=== PATIENT | male | born 1965 | race Two or more races ===

== ENCOUNTER → 2022-10-05 | Outpatient (CLI) | payer OTHER ==
[2022-10-05 17:11] LABS: BASOPHILS ABSOLUTE AUTO 0.05 K/mm3 (0.00-0.23); BASOPHILS PERCENT AUTO 1 % (0-2); EOSINOPHILS ABSOLUTE AUTO 0.13 K/mm3 (0.00-0.68); EOSINOPHILS PERCENT AUTO 1 % (0-6); Hematocrit 47.3 % (37.0-53.0); Hemoglobin 15.9 g/dL (13.5-17.5); IMMATURE GRAN ABSOLUTE AUTO 0.07 K/mm3 (0.00-0.10); IMMATURE GRAN PERCENT AUTO 1 % (0-1); LYMPHOCYTES ABSOLUTE AUTO 2.44 K/mm3 (0.84-5.20); LYMPHOCYTES PERCENT AUTO 23 % (21-46); MONOCYTES ABSOLUTE AUTO 0.59 K/mm3 (0.16-1.47); MONOCYTES PERCENT AUTO 6 % (4-13); Mean Corpuscular HGB 30.4 pg (26.0-34.0); Mean Corpuscular HGB Conc 33.6 g/dL (31.5-36.5); Mean Corpuscular Volume 90 fL (80-100); NEUTROPHILS ABSOLUTE AUTO 7.32 K/mm3 (1.96-9.15); NEUTROPHILS PERCENT AUTO 69 % (41-73); Platelet Count 303 K/mm3 (150-400); RDW Coefficient Variation 13.6 % (11.7-14.2); Red Blood Cell Count 5.23 M/mm3 (4.30-5.90)
[2022-10-05 17:42] LABS: Albumin, Blood 4.1 g/dL (3.4-5.0); Albumin/Globulin Ratio 1.1 (0.8-1.8); Bilirubin, Total 0.5 mg/dL (0.1-1.0); Bun/Creatinine Ratio 15.7 (12.0-20.0); Calcium, Blood 9.7 mg/dL (8.5-10.1); Creatinine, Blood 1.15 mg/dL (0.60-1.20); Globulin, Blood 3.8 g/dL (2.2-4.0); Potassium, Blood 4.1 mmol/L (3.5-5.5); Thyroid Stimulating Hormone 2.817 uIU/mL (0.360-4.800); Total Protein, Blood 7.9 g/dL (6.4-8.2)
== END | disposition home or self-care (01) ==
LOC: LAB SHORT 17:03
PROVIDERS: Chiropractor
DX: R53.81 Other malaise (principal); R53.83 Other fatigue
CPT/HCPCS: 80053; 84443; 84484; 85025; 85379; 85651; 86140

== ENCOUNTER 2023-03-05 12:52 | Inpatient (IN) | payer OTHER ==
[~2023-03-05] VITALS: Ht 177.8 cm; Wt 88.5 kg
[~2023-03-05 12:52] MED LIST: BACL10 PO; GABA100 PO; LISI20 PO; OMEP20ER PO; TAMS.4ER PO
[2023-03-05] MEDS ORDERED: NAPR220 PO (14:08)
[2023-03-05 15:23] LABS: BASOPHILS ABSOLUTE AUTO 0.06 K/mm3 (0.00-0.23); BASOPHILS PERCENT AUTO 0 % (0-2); EOSINOPHILS ABSOLUTE AUTO 0.06 K/mm3 (0.00-0.68); EOSINOPHILS PERCENT AUTO 0 % (0-6); Hematocrit 40.5 % (37.0-53.0); Hemoglobin 13.8 g/dL (13.5-17.5); IMMATURE GRAN ABSOLUTE AUTO 0.07 K/mm3 (0.00-0.10); IMMATURE GRAN PERCENT AUTO 1 % (0-1); LYMPHOCYTES ABSOLUTE AUTO 1.67 K/mm3 (0.84-5.20); LYMPHOCYTES PERCENT AUTO 12 % (21-46); MONOCYTES ABSOLUTE AUTO 0.62 K/mm3 (0.16-1.47); MONOCYTES PERCENT AUTO 5 % (4-13); Mean Corpuscular HGB 30.4 pg (26.0-34.0); Mean Corpuscular HGB Conc 34.1 g/dL (31.5-36.5); Mean Corpuscular Volume 89 fL (80-100); Mean Platelet Volume 9.4 fL (9.1-12.4); NEUTROPHILS ABSOLUTE AUTO 11.39 K/mm3 (1.96-9.15); NEUTROPHILS PERCENT AUTO 82 % (41-73); Platelet Count 295 K/mm3 (150-400); RDW Coefficient Variation 13.3 % (11.7-14.2); RDW Standard Deviation 43.5 fL (35.1-46.3); Red Blood Cell Count 4.54 M/mm3 (4.30-5.90); White Blood Cell Count 13.87 K/mm3 (4.00-11.30)
[2023-03-05 15:37] LABS: International Normalized Ratio 1.01; Prothrombin Time Results 10.6 Sec (9.7-11.5)
[2023-03-05 15:38] LABS: Bun/Creatinine Ratio 23.1 (12.0-20.0); Calcium, Blood 9.2 mg/dL (8.5-10.1); Potassium, Blood 4.1 mmol/L (3.5-5.5)
[2023-03-05 16:12] VITALS: BP 145/90
[2023-03-05 16:13] VITALS: BP 145/90
--- NOTE | 2023-03-05 16:24 | NUR ---
ARRIVAL TO UNIT PT ARRIVED TO UNIT FROM ER VIA GURNEY. TRANSFERED TO BED WITH SLIDE SHEET. PT REPORTS PAIN TOLERABLE ONCE SETTLED IN BED. HE ENDORSES NUMBNESS TO BILATERAL LEGS BUT BASELINE R/T PREVIOUS BACK INJURY. PPX4, CAP REFILL <3. MOVES TOES WELL. PT AA0X4. DENIES FURTHER NEEDS AT THIS TIME. ORIENTED TO UNIT. PLAN WILL BE FOR NPO AT MIDNIGHT POSSIBLE PROCEDURE TOMORROW.
[2023-03-05 20:10] VITALS: BP 135/84
[2023-03-05 20:24] LABS: Source, Urine Clean Catch
[2023-03-05 20:33] LABS: Appearance, Urine Clear (Clear); Bilirubin, Urine Neg (Neg); Blood, Urine Neg (Neg); Color, Urine Yellow (P-Yellow); Glucose Qualitative, Urine Neg (Neg); Ketones, Urine Neg (Neg); Leukocyte Esterase, Urine Neg (Neg); Nitrite, Urine Neg (Neg); Protein, Urine Neg (Neg); Urobilinogen, Urine NORM (Normal)
[2023-03-06 04:30] VITALS: BP 125/86
[2023-03-06 05:26] LABS: Hematocrit 40.5 % (37.0-53.0); Hemoglobin 13.7 g/dL (13.5-17.5); Mean Corpuscular HGB 30.5 pg (26.0-34.0); Mean Corpuscular HGB Conc 33.8 g/dL (31.5-36.5); Mean Corpuscular Volume 90 fL (80-100); Mean Platelet Volume 9.8 fL (9.1-12.4); Platelet Count 287 K/mm3 (150-400); RDW Coefficient Variation 13.3 % (11.7-14.2); RDW Standard Deviation 44.1 fL (35.1-46.3); Red Blood Cell Count 4.49 M/mm3 (4.30-5.90); White Blood Cell Count 11.93 K/mm3 (4.00-11.30)
[2023-03-06 05:59] LABS: Bun/Creatinine Ratio 22.8 (12.0-20.0); Calcium, Blood 8.7 mg/dL (8.5-10.1); Creatinine, Blood 0.96 mg/dL (0.60-1.20); Potassium, Blood 4.6 mmol/L (3.5-5.5)
--- NOTE | 2023-03-06 06:37 | NUR ---
SHIFT SUMMARY A/O X4- BEDREST THROUGHOUT THE SHIFT. PAIN MANAGED W/ PO PAIN MEDICATION. VOIDING WELL AND TOLERATED PO INTAKE. NPO AT MIDNIGHT. NO ACUTE CHANGES THROUGHOUT SHIFT.
[2023-03-06 09:05] VITALS: BP 130/66
--- NOTE | 2023-03-06 10:38 | NUR ---
MORNING CARE NOTE R FEMORAL NECK FX, POST FALL. AWAITING SURGICAL PROCEDURE. ORTHO CONSULT COMPLETED THIS AM. PT AOX4. VSS. PAIN TOLERABLE, PLAN TO MEDICATE PER EMAR PRN. ALLOWED A CLEAR LIQ DIET UNTIL 10, CURRENTLY NPO. SURGICAL INFECTION PREVENTION INTERVENTION COMPLETED. NO NEEDS AT THIS TIME, CALL LIGHT IN REACH
[2023-03-06 14:52] VITALS: BP 126/80
--- NOTE | 2023-03-06 15:24 | NUR ---
PT TRANSFERRED OFF OF UNIT FOR SURGICAL PROCEDURE VIA HOSPITAL BED.
[2023-03-06 15:35] VITALS: BP 133/75
--- NOTE | 2023-03-06 16:26 | NUR ---
PT RETURNED TO UNIT SURGICAL PROCEDURE POSTPONED UNTIL TOMORROW. SMALL SNACKS PROVIDED, DINNER TRAY WILL BE ORDERED. NPO AT MIDNIGHT. PAIN IS TOLERABLE AT THIS TIME, WILL MEDICATE PER EMAR PRN. AT BEDSIDE. NO NEEDS AT THIS TIME.
--- NOTE | 2023-03-06 17:35 | NUR ---
SHIFT SUMMARY NO ACUTE CHANGES THIS SHIFT. R FEMORAL NECK FX, POST FALL 03/05/23. SURGICAL PROCEDURE POSTPONED UNTIL TOMORROW. DINNER TRAY ORDERED, NPO AT MIDNIGHT. VSS. PAIN TOLERABLE PER EMAR, HAS REQ MINIMAL PAIN MEDICATION. AT BEDSIDE T/O SHIFT.
[2023-03-06 20:04] VITALS: BP 115/83
[2023-03-07] VITALS (18 sets, daily range): BP systolic 85–127; BP diastolic 38–83
--- NOTE | 2023-03-07 05:09 | NUR ---
SHIFT SUMMARY A/O X4- BEDREST THROUGHOUT SHIFT, PLAN FOR SURGERY TODAY. VOIDING WELL IN URINAL, TOLERATED PO INTAKE-NPO SINCE MIDNIGHT. PAIN MANAGED W/ PO PAIN MEDS. NO ACUTE CHANGES THROUGHOUT SHIFT.
--- NOTE | 2023-03-07 07:45 | NUR ---
Initial assessment: Patient is lying in bed awake, he is alert and oriented x4. He denies pain at this time, he states his right hip only hurts with movement. HRR. LS CTA, Biox WNL on RA. BT+. PPP. Some swelling noted to right hip. CHG prep complete along with chlorahexadine swish and nasal swab. Patient denies other needs at this time. He is NPO in anticipation for his procedure this afternoon. Call light in reach.
--- NOTE | 2023-03-07 13:30 | NUR ---
UPDATE: OR crew here to get the patient, he has not had any pain this shift. Family at bedside.
--- NOTE | 2023-03-07 16:31 | NUR ---
Update: Patient is still in the OR. Report given to Nela Surg Floor RN to assume care.
--- NOTE | 2023-03-07 16:32 | NUR ---
THIS NURSE IS ASSUMING CARE OF THIS PATIENT AFTER GETTING REPORT FROM RAVINDER WAN.
--- NOTE | 2023-03-07 18:50 | NUR ---
PATIENT CAME BACK FROM PACU TODAY AT 1840. POD 0 RIGHT TOTAL HIP PATIENT IS A&OX4. VS ARE WNL AND IS ON 2L NC WITH >90% OXYGEN SATS. HIS RIGHT HIP HAS AN AQUACEL THAT IS C/D/I. DENIES NUMBNESS OR TINGLING. CAN MOVE ALL FINGERS AND TOES. EMILY WAS TAKEN OUT AT THIS TIME. PATIENT REPORTS PAIN IN HIS BACK THE MOST AND WAS JUST GIVEN PO BACLOFEN. HE IS TOLERATING SMALL AMOUNTS OF PO INTAKE. PATIENT IS SITTING UP IN BED CALL LIGHT IN REACH.
[2023-03-08 04:42] VITALS: BP 93/62
--- NOTE | 2023-03-08 04:57 | NUR ---
SHIFT SUMMARY POD1 RIGHT KENDALL. DRESSING IS C/D/I, SENSATION AND CIRCULATION REMAINS INTACT. VSS, BP NOTED TO BE SOFT. IV FLUIDS INFUSING, PT REMAINS ASYMPTOMATIC. PT SLEPT WELL T/O THE NIGHT. DID NOT GET OOB. NO VOID NOTED, BLADDER SCAN [phone] AT 0449. PT REFUSED STRAIT CATH AT THIS TIME, REQUESTED TO TAKE FLOMAX DOSE EARLY TO SEE IF HE COULD VOID ON HIS OWN. PT EDUCATED THAT HE IS AT RISK FOR DEVELOPING COMPLICATIONS FROM NOT VOIDING FOR THIS LONG, PT EXPRESSED HIS UNDERSTANDING. PT MEDICATED FOR PAIN ONCE AT THE BEGINNING OF SHIFT WITH PERCOCET. PT TOLLERATING PO INTAKE W/O N/V. PLAN TO SEE IF PT CAN VOID BEFORE THE END OF SHIFT, AND HAVE PT WORK WITH PT/OT TODAY. THE PATIENT IS RESTING, CALL LIGHT IN REACH
[2023-03-08 05:08] LABS: Hematocrit 39.2 % (37.0-53.0); Hemoglobin 13.1 g/dL (13.5-17.5); Mean Corpuscular HGB Conc 33.4 g/dL (31.5-36.5); Mean Corpuscular Volume 90 fL (80-100); Mean Platelet Volume 9.7 fL (9.1-12.4); Platelet Count 298 K/mm3 (150-400); RDW Coefficient Variation 12.7 % (11.7-14.2); RDW Standard Deviation 42.3 fL (35.1-46.3); Red Blood Cell Count 4.36 M/mm3 (4.30-5.90); White Blood Cell Count 16.32 K/mm3 (4.00-11.30)
[2023-03-08 05:23] LABS: Albumin, Blood 2.8 g/dL (3.4-5.0); Anion Gap 3 mmol/L (6-16); Blood Urea Nitrogen 20 mg/dL (8-24); Bun/Creatinine Ratio 20.8 (12.0-20.0); CO2, Blood 27 mmol/L (21-32); Calcium, Blood 8.1 mg/dL (8.5-10.1); Chloride, Blood 105 mmol/L (98-108); Creatinine, Blood 0.96 mg/dL (0.60-1.20); Glomerular Filtration Rate 91 (60-); Glucose, Blood 141 mg/dL (70-99); Potassium, Blood 4.3 mmol/L (3.5-5.5); Sodium, Blood 135 mmol/L (136-145)
--- NOTE | 2023-03-08 06:25 | NUR ---
ELIMINATION PT AMBULATED TO THE BATHROOM, 1P FWW MIN ASSIST, SAT ON THE TOILET AND HAD AN UNMEASURED VOID. PT STATES HE FEELS IF HE EMPTIES HIS BLADDER COMPLETELY AND DOES NOT FEEL ANY LOWER ABD PAIN, BLADDER SPASMS, OR IF HE IS EXPERIENCING ANY RETENTION
[2023-03-08 07:40] VITALS: BP 106/70
--- NOTE | 2023-03-08 10:50 | NUR ---
ICE THERAPY PT DENIED POLAR PACK, EDUCATION PROVIDED BY JADEN ROWAN. WILL FOLLOW UP.
[2023-03-08 11:05] VITALS: BP 114/75
--- NOTE | 2023-03-08 16:51 | NUR ---
DR. RIBEIRO STATED OK WITH PLAN FOR DISCHARGE TODAY. DR. VU NOTIFIED THAT PT CLEARED THERAPY AND OK FROM ORTHO STANDPOINT FOR DISCHARGE. PER DR. RIBEIRO PT SHOULD HAVE ASA 81MG PO BID X 1 MONTH AND F/U IN [address] VU NOTIFIED OF NEED FOR PRESCRIPTION FOR PAIN MEDICATION UPON DISCHARGE. AWAITING DISCHARGE ORDERS.
[2023-03-08] MEDS ORDERED: DOCU100 PO (17:34)
[2023-03-08] MEDS ORDERED: Percocet 5-3251 EACH PO (17:36)
[2023-03-08] MEDS ORDERED: MIRALAX17 GM PO (17:36)
[2023-03-08] MEDS ORDERED: ASPI81CH PO (17:36)
[2023-03-08 17:54] VITALS: BP 132/73
--- NOTE | 2023-03-08 18:04 | NUR ---
DISCHARGE DISCHARGED HOME AT APPROX 1800. PT AND PROVIDED VERBAL AND WRITTEN INSTRUCTIONS AND REPORTED UNDERSTANDING. PT WAS A&OX4, VSS, VOIDING, TOLERATING PO, AND AMB. PAIN MANAGED WITH PERCOCET AND DENIED PAIN AT DISCHARGE. PT WAS PROVIDED WITH AQUACEL DRESSINGS AND BELONGINGS WERE RETURNED. PT WAS ESCOURTED OUT VIA W/C BY DEMETRIUS WAN.
== END 2023-03-08 18:30 | disposition home or self-care (01) | DRG 522 ==
LOC: ER 12:52 → SURS 15:15
PROVIDERS: Orthopaedic Surgery; Student in an Organized Health Care Education/Training Program; ADMIT Internal Medicine
PROC: 0SR904A Replacement of Right Hip Joint with Ceramic on Polyethylene Synthetic Substitute, Uncemented, Open Approach (ICD-10-PCS; principal; 2023-03-07 12:30)
DX: S72.001A Fracture of unspecified part of neck of right femur, initial encounter for closed fracture (principal); G89.29 Other chronic pain; I10 Essential (primary) hypertension; N40.0 Benign prostatic hyperplasia without lower urinary tract symptoms; K21.9 Gastro-esophageal reflux disease without esophagitis; M54.40 Lumbago with sciatica, unspecified side; G47.33 Obstructive sleep apnea (adult) (pediatric); D72.828 Other elevated white blood cell count; Z79.899 Other long term (current) drug therapy; W10.8XXA Fall (on) (from) other stairs and steps, initial encounter
CPT/HCPCS: 36415; 72170; 73502; 80048; 80069; 81003; 85025; 85027; 85610; 85730; 86850; 86900; 86901; 94760; 96374; 97110; 97116; 97162; 97165; 97530; 99284-25; A9270; C1713; C1776; J0171; J0690; J0735; J1100; J1170; J1650; J1885; J2250; J2370; J2405; J2704; J2795; J3010; J7030; J7050; J7120